=== PATIENT | female | born 1975 | race Two or more races ===

== ENCOUNTER 2024-12-21 17:04 | Emergency (ER) | payer MEDICAID, SELFPAY ==
[2024-12-21 17:22] VITALS: BP 149/91; PULSE 95; RESP 18; TEMP 36.9; O2SAT 98
--- NOTE | 2024-12-21 17:24 | XR_ITS ---
Examination: PA lateral chest 2 views TECHNIQUE: Upright PA and lateral chest 2 views Date and time: December 21, 2024 1835 hours Comparison June 20, 2023 INDICATIONS: Chest pain today. FINDINGS: Normal heart size. Lungs are clear. Osseous structures are intact. IMPRESSION: No active disease
--- NOTE | 2024-12-21 17:24 | EKG_ITS ---
[facility] Test Date: 2024-12-21 Pat Name: AINSLEY BARRAGAN Department: Room: - Gender: Female Brass [employer]ater: : 1975 Requested By: Dameon Gasca Order Number: [id number] Reading MD: Dameon Gasca Measurements Intervals [place] Rate: 97 P: 57 IA: 135 QRS: 13 QRSD: 99 T: 86 QT: 402 QTc: 513 Interpretive Statements SINUS RHYTHM NONSPECIFIC T-WAVE ABNORMALITY Compared to ECG 03/17/2023 16:57:54 Short IA interval no longer present Possible ischemia no longer present T-wave abnormality still present /store/S0/[id number]/ecg/[id number].pdf
--- NOTE | 2024-12-21 17:24 | PD.EDRME ---
Rapid Medical Screening Exam [facility] Arrival date/time: 12/21/24 17:04 49-year-old female with a history of methamphetamine abuse and congestive heart failure presents to the emergency room with a chief complaint of an insect bite to her left chin, and bilateral lower extremity swelling x 1 week. I have greeted and performed a focused initial assessment of this patient. A comprehensive ED assessment and evaluation of the patient, analysis of all test results, and completion of the medical decision making process will be conducted by additional ED providers. Chief Complaint: Animal Bite Vital signs: Vital Signs Temperature 98.4 F 12/21/24 17:22 Pulse Rate 95 12/21/24 17:22 Respiratory Rate 18 12/21/24 17:22 Blood Pressure 149/91 H 12/21/24 17:22 Pulse Oximetry (%) 98 12/21/24 17:22 Oxygen Delivery Method Room Air 12/21/24 17:22 Vital signs reviewed by provider: Yes
[2024-12-21 18:21] LABS: Basophils % (Auto) 0 % (0-2.5); Eosinophils # (Auto) 0.2 Thou/mm3 (0.0-0.5); Eosinophils % (Auto) 3 % (0-10); Hematocrit 30.9 % (36.0-46.0); Hemoglobin 9.7 g/dL (12.0-16.0); Immature Granulocytes % (Auto) 0 % (0-0); Immature Granulocytes Auto 0.01 Thou/mm3 (0.00-0.00); Lymphocytes # (Auto) 2.5 Thou/mm3 (1.0-4.8); Lymphocytes % (Auto) 36 % (10-50); Mean Corpuscular HGB Conc 31.4 g/dl (31.0-37.0); Mean Corpuscular Hemoglobin 24.1 pg (25.0-35.0); Mean Corpuscular Volume 77 fL (80-100); Monocytes # (Auto) 0.5 Thou/mm3 (0.0-0.8); Monocytes % (Auto) 7 % (0-12); Neutrophils # (Auto) 3.8 Thou/mm3 (1.8-7.7); Neutrophils % (Auto) 55 % (37-80); Nucleated Red Blood Cell % 0 /100 WBC (0); Platelet Count 416 Thou/mm3 (140-440); RDW Standard Deviation 44.7 fL (36.4-46.3); Red Blood Count 4.02 Miln/mm3 (4.00-5.20); White Blood Count 6.9 Thou/mm3 (3.6-11.0)
--- NOTE | 2024-12-21 18:21 | PD.EDSKIN ---
ED Skin Abcess FB-RME/HPI General Chief complaint: Animal Bite Stated complaint: BITE ON L) JAW X 2 DAYS, TEETH HURTING FROM BITE Time Seen by Provider: 12/21/24 18:14 Arrival date/time: 12/21/24 17:04 RME / HPI RME / HPI narrative: 12/21/24 17:04 49-year-old female with a history of methamphetamine abuse and congestive heart failure presents to the emergency room with a chief complaint of an insect bite to her left chin, and bilateral lower extremity swelling x 1 week. I have greeted and performed a focused initial assessment of this patient. A comprehensive ED assessment and evaluation of the patient, analysis of all test results, and completion of the medical decision making process will be conducted by additional ED providers. This section includes all my notes and documentations, including HPI, PE, and ED course. Eliecer Nunez MD HPI: 49 y/o female with Hx of CHF, Asthma, Anxiety, and Hypertension presents to ED c/o possible insect bite with infection in the chin. In addition, patient also reports BLL swelling x several years, no worsening recently. Denies dysuria. Reports allergies to Aspirin, Penicillin, and Codeine. No chest pain or shortness of breath.no fever. No other complaints. ROS: All negative except as documented in HPI. Physical Exam: General: Alert and oriented. No acute distress when remaining still. Eyes: Conjunctivae and lids clear. ENT: No nasal congestion. Neck: Supple. Heart: RRR. Lungs: No respiratory distress. Good air movement. No rhonchi, wheezing, rales. Abdomen: Soft and nontender. Skin: Pea-sized pimple-like lesion to the left side of chin, no fluctuancy. Neuro: Alert and oriented X 3. I reviewed all diagnostic test results. My interpretation of the EKG is sinus rhythm with no acute ST?T changes. My interpretation of the chest x-ray is NAD. Blood tests unremarkable, including WBC 6.9. At this point, diagnoses include cellulitis. Treatment here included Levofloxacin. Recommend outpatient treatment. Based on my best medical judgment, made decision no further evaluation or treatment indicated at this time. Patient understands and agrees to the discharge instructions customized and printed, see below. Discharge Instructions from Dr. Nunez printed for you: 1. Take Cipro to kill the germs causing the infection in your chin. 2. Avoid scratching in the future. Avoid scratching in the future to prevent damage of your skin and potentially severe infection. 3. See a private doctor on 12/22/2024 for recheck. Ask for help until you are completely better. 4. Seek immediate medical care with fever, spreading redness, or with any concerns. Eliecer Nunez MD Related Data Home Medications ?Medication ?Instructions ?Recorded ?Confirmed atorvastatin 40 mg tablet 40 mg PO QDAY 04/27/22 05/24/22 famotidine 20 mg tablet 20 mg PO BID 04/27/22 05/24/22 furosemide 20 mg tablet 20 mg PO BID 04/27/22 05/24/22 lisinopril 20 mg tablet 20 mg PO QDAY 04/27/22 05/24/22 potassium chloride 8 mEq 8 meq PO BID 04/27/22 05/24/22 capsule,extended release Previous Rx's ?Medication ?Instructions ?Recorded ciprofloxacin HCl 500 mg tablet 500 mg PO BID 3 days #6 tabs 12/21/24 (Cipro) Allergies Allergy/AdvReac Type Severity Reaction Status Date / Time aspirin Allergy Severe UNKNOWN Verified 12/21/24 17:08 codeine Allergy Severe HIVES Verified 12/21/24 17:08 Penicillins Allergy Severe UNKNOWN Verified 12/21/24 17:08 Review of Systems Review of Systems Systems Reviewed: All systems reviewed, normal except as documented Past Medical History Past Medical History CARDIAC: Positive Cardiac Disorders, Congestive Heart Failure and Hypertension RESPIRATORY: Positive Asthma PSYCHO/SOCIAL: Positive Anxiety Family History FAMILY HISTORY: Positive Family Cardiac Disorders Surgical History SURGICAL: Positive Abdominal Surgery Social History SMOKING STATUS: Current every day smoker ED Exam Narrative Physical exam: Refer to HPI above Course Course Course Narrative: CXR is ordered for determining the etiology of shortness of breath. Quality Measures none Orders Category Date Time Status EKG (ED ONLY) *Do not use* NOW Care 12/21/24 17:24 Completed EKG (ED Only) Stat Exams 12/21/24 17:24 Draft XR chest 2V Stat Exams 12/21/24 17:24 Completed B-Type Natriuretic Peptide Stat Lab 12/21/24 18:13 Completed CBC Stat Lab 12/21/24 18:13 Completed Comprehensive Metabolic Panel Stat Lab 12/21/24 18:13 Completed Magnesium Stat Lab 12/21/24 18:13 Completed Troponin I Stat Lab 12/21/24 18:13 Completed Levofloxacin [Levaquin] Med 12/21/24 19:01 Discontinued 500 mg PO X1 ONE Vital Signs Vital signs: Vital Signs Temperature 98.4 F 12/21/24 17:22 Pulse Rate 95 12/21/24 17:22 Respiratory Rate 18 12/21/24 17:22 Blood Pressure 149/91 H 12/21/24 17:22 Pulse Oximetry (%) 98 12/21/24 17:22 Oxygen Delivery Method Room Air 12/21/24 17:22 Skin / Abscess / Foreign Body MDM Narrative MDM Narrative:: Scribe Attestation: Asiya Pelayo, am scribing for and in the presence of Dr. Nunez. Provider Notation: Although this document has been carefully reviewed, there may still be some phonetic and other typographical errors. These errors are purely grammatical due to imperfections in the software program and should not be construed in any way to compromise the substance of the patient's medical care during this visit. 49 y/o female with Hx of CHF, Asthma, Anxiety, and Hypertension presents to ED c/o possible insect bite with associated fever x 2 days. In addition, patient also reports BLL swelling x several years. Patient data External records reviewed:: [facility] previous records (Prior ED records reviewed from 06/20/23. Patient was seen for Bacterial skin infection.) Clinical information provided by:: patient Social determinants that could affect healthcare access:: none Patient has the following chronic illnesses:: Congestive Heart Failure, Hypertension, Asthma, Anxiety How is presenting disease/condition affected by chronic disease/condition?: exacerbated by Evaluation data The following diagnostics were reviewed and interpreted by me:: lab results, radiology exam(s) and EKG tracing(s) Lab and/or radiology exams considered but not ordered:: None Interpretation Summary: I reviewed all diagnostic test results. My interpretation of the EKG is sinus rhythm with no acute ST?T changes. My interpretation of the chest x-ray is NAD. Blood tests unremarkable, including WBC 6.9. Medications / Prescriptions Medications or Prescriptions considered but not ordered:: None Medication administrations:: Medication Administration History Discontinued Medications Levofloxacin (Levofloxacin 250 Mg Tablet) 500 mg PO X1 ONE Stop: 12/21/24 19:02 Last Admin: 12/21/24 19:15 Dose: 500 mg Documented By: EF Levofloxacin Consultations Consultation(s) initiated? (list below): No Diagnosis Skin/Abscess Differential Diagnosis: abscess of skin or subcutaneous tissue, allergic reaction to drug, cellulitis, insect bites, impetigo and contact dermatitis Most likely diagnosis given after review of the tests above:: Cellulitis Admission Indicated Admission indicated?: not indicated Explain why admission is indicated or not indicated:: There was no indication for admission. Admission Request Was there a request for admission?: No Disposition Plan Disposition Plan: Discharge Discharge Attestation Discharge Attestation: The patient and all family members were given an opportunity to ask questions and understood the discharge instructions. Discharge instructions specifically effects, indications for sooner follow up or return to the emergency department, and the expected course of current diagnosis. Patient condition: Stable Discharge Plan Plan Patient Disposition: HOME (Self Care) Prescriptions/Referrals Prescriptions/Med Rec: New ciprofloxacin HCl [Cipro] 500 mg tablet 500 mg PO BID 3 Days Qty: 6 0RF No Action atorvastatin 40 mg tablet 40 mg PO QDAY Patient Comments: TAKE ONE TABLET BY MOUTH EVERY EVENING potassium chloride 8 mEq capsule, extended release 8 meq PO BID Patient Comments: TAKE ONE CAPSULE BY MOUTH TWICE DAILY with furosemide lisinopril 20 mg tablet 20 mg PO QDAY Patient Comments: TAKE ONE TABLET BY MOUTH EVERY DAY famotidine 20 mg tablet 20 mg PO BID Patient Comments: TAKE ONE TABLET BY MOUTH TWICE DAILY furosemide 20 mg tablet 20 mg PO BID Patient Comments: TAKE ONE TABLET BY MOUTH TWICE DAILY Referrals: No Primary/Family,Physician [Primary Care Provider] - In 1 week Problem List Clinical Impression: Cellulitis Patient/Caregiver Discharge Instructions Discharge Activity: activity as tolerated Education Materials: ED Cellulitis Additional Instructions: Discharge Instructions from Dr. Nunez printed for you: 1. Take Cipro to kill the germs causing the infection in your chin. 2. Avoid scratching in the future. Avoid scratching in the future to prevent damage of your skin and potentially severe infection. 3. See a private doctor on 12/22/2024 for recheck. Ask for help until you are completely better. 4. Seek immediate medical care with fever, spreading redness, or with any concerns. Print Language: Tunisian Stand Alone Forms: [employer] Info., Patient Portal Info Letter
--- NOTE | 2024-12-21 18:25 | PC.NURSE ---
in to assess pt, pt resting quietly at this time with c/o possible insect bite to chin causing pain that radiates down to the neck. pt also c/o bilat leg swelling/pain. pt without further complaints at this time. workup in progress. spouse at bedside. call light is within reach. plan of care ongoing.
[2024-12-21 18:42] LABS: Alanine Aminotransferase 9 U/L (10-49); Albumin, Serum 4.3 gm/dL (3.5-5.0); Albumin/Globulin Ratio 1.5 (1.2-2.2); Alkaline Phosphatase 104 U/L (46-116); Anion Gap 5 (7-16); Aspartate Amino Transferase 13 U/L (0-34); Bilirubin,Total 0.2 mg/dL (0.3-1.2); Calcium 8.7 mg/dL (8.3-10.6); Calcium (Corrected) 8.7 mg/dL (8.5-10.1); Carbon Dioxide 24.8 mMol/L (20.0-31.0); Chloride 106 mMol/L (98-107); Creatinine (Component) 0.7 mg/dL (0.6-1.3); Globulin 2.8 gm/dL (2.3-3.5); Glucose 95 mg/dL (74-106); Magnesium 1.7 mg/dL (1.6-2.6); Potassium 3.9 mMol/L (3.4-5.1); Sodium 136 mMol/L (136-145); Total Protein 7.1 gm/dL (5.7-8.2); eGFR > 60 See Note
[2024-12-21 18:43] VITALS: BP 134/88; PULSE 90; RESP 12; TEMP 36.9; O2SAT 98
[2024-12-21 19:12] LABS: B-Type Natriuretic Peptide 247 pg/mL (0-100); BUN/Creatinine Ratio 19 Ratio (12-20); Blood Urea Nitrogen 13 mg/dL (9-23); Osmolality,Calculated 272 (275-295); Troponin I < 0.020 ng/mL (0.0-0.045)
[2024-12-21] MEDS: LEVOFLOXACIN 250 MG TABLET 500 MG PO (19:15)
== END 2024-12-21 19:55 | disposition home or self-care (01) ==
PROVIDERS: Nurse Practitioner Family; Emergency Provider Emergency Medicine
DX: L03.211 Cellulitis of face (principal); I11.0 Hypertensive heart disease with heart failure; I50.9 Heart failure, unspecified; J45.909 Unspecified asthma, uncomplicated; F41.9 Anxiety disorder, unspecified
CPT/HCPCS: 36415; 71046; 80053; 80307; 81001; 83735; 83880; 84484; 85025; 93005; 99283; A9270

== ENCOUNTER 2025-02-20 21:31 | Emergency (ER) | payer MEDICAID, SELFPAY ==
[2025-02-20 21:33] VITALS: BMI 27.4
[2025-02-20 22:02] VITALS: BP 143/81; PULSE 103; RESP 18; TEMP 36.9; O2SAT 97
--- NOTE | 2025-02-20 22:10 | XR_ITS ---
Examination: PA lateral chest 2 views Technique portable upright AP lateral chest 2 views Date and time: February 20, 2025 10:23 PM INDICATIONS: Chest pain shortness of breath today. FINDINGS: Mild prominence left ventricle. No pneumonia or pulmonary edema. Intact osseous structures IMPRESSION: No pneumonia or pulmonary edema
--- NOTE | 2025-02-20 22:10 | EKG_ITS ---
[facility] Test Date: 2025-02-20 Pat Name: AINSLEY BARRAGAN Department: Room: - Gender: Female [employer]or: : 1975 Requested By: Rolly Bernabe Order Number: [id number] Reading MD: Rolly Bernabe Measurements Intervals [place] Rate: 91 P: 37 [place]: 122 QRS: -17 QRSD: 102 T: 127 QT: 402 QTc: 495 Interpretive Statements SINUS RHYTHM LEFT VENTRICULAR HYPERTROPHY AND ST-T CHANGE [VOLTAGE CRITERIA PLUS ST/T ABNORMALITY] Compared to ECG 12/21/2024 17:35:54 Left ventricular hypertrophy now present ST (T wave) deviation now present T-wave abnormality no longer present /store/S0/[id number]/ecg/[id number].pdf
--- NOTE | 2025-02-20 22:11 | EDRME_ITS ---
Rapid Medical Screening Exam [facility] Arrival date/time: 02/20/25 21:31 50F with history of drug-induced CHF presents to ED with 9 days of N/V and non- bloody diarrhea. There is also some SOB, but no CP. Patient also has had some spotting but denies . Patient states she's no on her period. Chief Complaint: Nausea/Vomiting/Diarrhea Vital signs: Vital Signs Temperature 98.5 F 02/20/25 22:02 Pulse Rate 103 H 02/20/25 22:02 Respiratory Rate 18 02/20/25 22:02 Blood Pressure 143/81 H 02/20/25 22:02 Pulse Oximetry (%) 97 02/20/25 22:02 Oxygen Delivery Method Room Air 02/20/25 22:02
[2025-02-20 22:29] LABS: Basophils # (Auto) 0.0 Thou/mm3 (0.0-0.2); Basophils % (Auto) 0 % (0-2.5); Eosinophils # (Auto) 0.1 Thou/mm3 (0.0-0.5); Eosinophils % (Auto) 2 % (0-10); Hematocrit 33.0 % (36.0-46.0); Hemoglobin 10.2 g/dL (12.0-16.0); Immature Granulocytes Auto 0.02 Thou/mm3 (0.00-0.00); Lymphocytes # (Auto) 1.8 Thou/mm3 (1.0-4.8); Lymphocytes % (Auto) 26 % (10-50); Mean Corpuscular HGB Conc 30.9 g/dl (31.0-37.0); Mean Corpuscular Hemoglobin 23.6 pg (25.0-35.0); Mean Corpuscular Volume 76 fL (80-100); Monocytes # (Auto) 0.4 Thou/mm3 (0.0-0.8); Monocytes % (Auto) 6 % (0-12); Neutrophils # (Auto) 4.5 Thou/mm3 (1.8-7.7); Neutrophils % (Auto) 66 % (37-80); Nucleated Red Blood Cell # 0.00 Thou/mm3 (0.00-0.00); Nucleated Red Blood Cell % 0 /100 WBC (0); Platelet Count 456 Thou/mm3 (140-440); RDW Standard Deviation 46.0 fL (36.4-46.3); Red Blood Count 4.33 Miln/mm3 (4.00-5.20); White Blood Count 6.9 Thou/mm3 (3.6-11.0)
[2025-02-20 22:40] VITALS: BP 134/74; PULSE 90; RESP 18; TEMP 36.6; O2SAT 97
[2025-02-20 22:46] LABS: Collection Type, Urine Clean Catch
[2025-02-20 22:48] LABS: Alanine Aminotransferase 10 U/L (10-49); Albumin, Serum 4.4 gm/dL (3.5-5.0); Albumin/Globulin Ratio 1.6 (1.2-2.2); Alkaline Phosphatase 111 U/L (46-116); Anion Gap 13 (7-16); Aspartate Amino Transferase 14 U/L (0-34); BUN/Creatinine Ratio 14 Ratio (12-20); Bilirubin,Total 0.2 mg/dL (0.3-1.2); Blood Urea Nitrogen 13 mg/dL (9-23); Calcium 9.3 mg/dL (8.3-10.6); Calcium (Corrected) 9.3 mg/dL (8.5-10.1); Carbon Dioxide 23.9 mMol/L (20.0-31.0); Chloride 106 mMol/L (98-107); Creatinine (Component) 0.9 mg/dL (0.6-1.3); Estimated Creatinine Clearance 69.1 mL/min (>60); Globulin 2.8 gm/dL (2.3-3.5); Glucose 104 mg/dL (74-106); Lipase 26 U/L (12-53); Osmolality,Calculated 285 (275-295); Potassium 3.7 mMol/L (3.4-5.1); Sodium 143 mMol/L (136-145); Total Protein 7.2 gm/dL (5.7-8.2); Troponin I < 0.020 ng/mL (0.0-0.045); eGFR > 60 See Note
[2025-02-20 22:51] LABS: B-Type Natriuretic Peptide 225 pg/mL (0-100)
[2025-02-20 23:01] LABS: Bacteria,Urine Rare; Bilirubin,Urine Negative (Negative); Blood,Urine Negative (Negative); Clarity,Urine Turbid (Clear/Hazy); Color,Urine Yellow (Lt Yel-Yel); Glucose, Urine Negative (Negative); Ketones,Urine Negative (Negative); Leukocyte Esterase,Urine Positive (Negative); Nitrite,Urine Positive (Negative); PH,Urine 5.5 (5.0-7.0); Protein,Urine 1+ (Neg - Trace); RBC,Urine 9 /hpf (0-3); Specific Gravity,Urine 1.035 (1.001-1.035); Squamous Epithelial Cell,Urine 22 /hpf (0-5); Urobilinogen,Urine Negative mg/dL (0.0-1.0); WBC,Urine 15 /hpf (0-5)
[2025-02-20 23:04] LABS: HCG Qualitative,Urine Negative
[2025-02-20 23:48] VITALS: BP 126/82; PULSE 91; RESP 19; TEMP 36.8; O2SAT 100
[2025-02-21 00:11] LABS: Barbiturate Screen,Urine Negative (Negative); Benzodiazepines Screen,Urine Negative (Negative); Benzoylecgonine Screen, Ur Negative (Negative); Fentanyl Screen,Urine Negative (Negative); Opiate Screen,Urine Negative (Negative); THC Screen,Urine Negative (Negative)
[2025-02-21 00:12] LABS: Amphetamine/Methamp Scrn,U Positive (Negative)
--- NOTE | 2025-02-21 00:20 | PD.EDNV ---
Nausea/Vomit./Diarrhea-RME/HPI General Chief complaint: Nausea/Vomiting/Diarrhea Stated complaint: DIARRHEA X 9DAYS, SPOTTING Arrival date/time: 02/20/25 21:31 RME / HPI RME / HPI Narrative: 02/20/25 21:31 50F with history of drug-induced CHF presents to ED with 9 days of N/V and non-bloody diarrhea. There is also some SOB, but no CP. Patient also has had some spotting but denies . Patient states she's no on her period. Dr. Collins?s Main ED Evaluation: 50yo female with a history of seizures, CHF, HTN presents to the ED for complaints of N/V/D for the last 8-9 days. No hematemesis, hematochezia or melena. Patient states she has been unable to keep any food or fluids down. She reports associated generalized weakness, dizziness, and fever. She also notes having vaginal spotting that started yesterday. No chills, sweating, chest pain, abdominal pain, UTI symptoms or any other associated symptoms. She is not passing gas. She is not on any mediations. PSH includes cholecystectomy. Related Data Home Medications ?Medication ?Instructions ?Recorded ?Confirmed atorvastatin 40 mg tablet 40 mg PO QDAY 04/27/22 05/24/22 famotidine 20 mg tablet 20 mg PO BID 04/27/22 05/24/22 furosemide 20 mg tablet 20 mg PO BID 04/27/22 05/24/22 lisinopril 20 mg tablet 20 mg PO QDAY 04/27/22 05/24/22 potassium chloride 8 mEq 8 meq PO BID 04/27/22 05/24/22 capsule,extended release Previous Rx's ?Medication ?Instructions ?Recorded ciprofloxacin HCl 500 mg tablet 500 mg PO BID #20 tabs 02/21/25 (Cipro) metronidazole 500 mg tablet 500 mg PO TID #21 tabs 02/21/25 Allergies Allergy/AdvReac Type Severity Reaction Status Date / Time aspirin Allergy Severe UNKNOWN Verified 02/20/25 21:32 codeine Allergy Severe HIVES Verified 02/20/25 21:32 Penicillins Allergy Severe UNKNOWN Verified 02/20/25 21:32 Review of Systems Review of Systems Systems Reviewed: All systems reviewed, normal except as documented Past Medical History Past Medical History NEUROLOGIC: Positive Neurological Disorders and Seizures CARDIAC: Positive Cardiac Disorders, Congestive Heart Failure and Hypertension RESPIRATORY: Positive Respiratory Disorders and Asthma; Negative Chronic Obstructive Pulmonary Disease (COPD) GASTROINTESTINAL: Positive Gastrointestinal Disorders and Gall Bladder Disease; Negative Hepatitis GENITOURINARY: Negative Genitourinary Disorders or Renal Disease REPRODUCTIVE: Positive Previous Pregnancies; Negative Pelvic Inflammatory Disease MUSCULOSKELETAL: Negative Musculoskeletal Disorders ENT: Negative History of ENT Problems ENDOCRINE: Negative Endocrine Disorders, Diabetes Mellitus Type 1 or Diabetes Mellitus Type 2 HEMATOLOGIC: Negative Blood Disorders or Sickle Cell Disease PSYCHO/SOCIAL: Positive Recreational Drug Use, Depression and Anxiety OTHER HISTORY: Negative Autoimmune Disease, Falls, Human Immunodeficiency Virus (HIV), Chicken Pox, Measles, Mumps, Rubella ([place] Measles), Pertussis or Clostridium Difficile Family History FAMILY HISTORY: Positive Family Cardiac Disorders Surgical History SURGICAL: Positive Abdominal Surgery Social History SMOKING STATUS: Current every day smoker SECOND HAND EXPOSURE: No ED Exam Narrative Physical exam: GENERAL APPEARANCE: alert and oriented x 4, well-developed, well-nourished, no acute distress VITALS: All vitals were reviewed and the pulse ox is 100% on room air, which is normal according to my interpretation. HEENT: Normocephalic, atraumatic; pupils equal, round, reactive to light; EOMI; mucous membranes pink, moist; oropharynx clear NECK: Supple LUNGS: CTABL; no wheezes, no rales, no rhonchi HEART: Regular rate, regular rhythm; normal S1, S2; no murmurs ABDOMEN: moderately distended; some high-pitched BS; soft, no tenderness, no guarding, no rebound; no masses, no organomegaly, no hernia BACK: no CVA tenderness EXTREMITIES: atraumatic; no edema NEUROLOGIC: awake; alert and oriented x4; cranial nerves II-XII grossly intact; no focal sensory or motor deficits PSYCHIATRIC: appropriate mood and affect SKIN: warm, dry, normal color; no rashes Course Quality Measures none Orders Category Date Time Status CT Screening NOW Care 02/21/25 01:22 Active EKG (ED ONLY) *Do not use* NOW Care 02/20/25 22:[address] abdomen pelvis w con Stat Exams 02/21/25 01:22 Taken EKG (ED Only) Stat Exams 02/20/25 22:10 Draft XR chest 2V Stat Exams 02/20/25 22:10 Completed B-Type Natriuretic Peptide Stat Lab 02/20/25 22:20 Completed CBC Stat Lab 02/20/25 22:20 Completed Comprehensive Metabolic Panel Stat Lab 02/20/25 22:20 Completed Drug Screen,Urine Stat Lab 02/20/25 22:41 Completed HCG Qualitative,Urine Stat Lab 02/20/25 22:41 Completed Lipase Stat Lab 02/20/25 22:20 Completed Troponin I Stat Lab 02/20/25 22:20 Completed Urinalysis Stat Lab 02/20/25 22:41 Completed CIPROFLOXACIN/D5w 400 MG IVPB [Cipro Ivpb] Med 02/21/25 03:14 Active 400 mg in 200 ml IV X1 Sodium Chloride 0.9% 1000 ml [Ns] 1,000 ml Med 02/21/25 03:14 Active IV 999 mls/hr metroNIDAZOLE/NS 500 MG IVPB [Flagyl 500 mg IV] Med 02/21/25 03:14 Discontinued 500 mg in 100 ml IV X1 Vital Signs Vital signs: Vital Signs Temperature 98.5 F 02/20/25 22:02 Pulse Rate 103 H 02/20/25 22:02 Respiratory Rate 18 02/20/25 22:02 Blood Pressure 143/81 H 02/20/25 22:02 Pulse Oximetry (%) 97 02/20/25 22:02 Oxygen Delivery Method Room Air 02/20/25 22:02 Nausea/Vomiting/Diarrhea MDM Narrative MDM Narrative:: Scribe Attestation: 02/20/25 - Meghna Pelayo am scribing for and in the presence of Dr. Collins. Patient data External records reviewed:: [facility] previous records (Per chart review, patient was seen here on 12/21/24 for cellulitis.) Clinical information provided by:: patient Social determinants that could affect healthcare access:: none Patient has the following chronic illnesses:: seizures, CHF, HTN How is presenting disease/condition affected by chronic disease/condition?: uneffected by Evaluation data The following diagnostics were reviewed and interpreted by me:: lab results, radiology exam(s) and EKG tracing(s) Lab and/or radiology exams considered but not ordered:: none Interpretation Summary: CBC normal, CMP normal, Troponin normal, BNP 225; UA shows 1+ protein, positive nitrites, positive leukocyte esterase, 9 RBCs, 15 WBCs, and rare bacteria; HCG negative; UDS positive for methamphetamines. EKG done at 2213, NSR, rate of 91, T wave inversion in lead I and avL, LVH, no STEMI, according to my interpretation. [facility] Report Signed Patient: AINSLEY BARRAGAN Record#: [id number] Birthdate: 1975 Age/Sex: 50 / F Location: [facility] Attending Dr: Ordering Physician: Rolly Bernabe PA-C Date of Service: 02/20/25 Procedure(s): XR chest 2V Accession Number(s): [id number] cc: Mateo Go MD; Rolly Bernabe PA-C~ Examination: PA lateral chest 2 views Technique portable upright AP lateral chest 2 views Date and time: February 20, 2025 10:23 PM INDICATIONS: Chest pain shortness of breath today. FINDINGS: Mild prominence left ventricle. No pneumonia or pulmonary edema. Intact osseous structures IMPRESSION: No pneumonia or pulmonary edema Dictated By: Mateo Go MD Signed By: <Electronically signed by Mateo Go MD in OV> 02/20/257 [facility] Preliminary Report Draft Patient: AINSLEY BARRAGAN. Record#: [id number] Birthdate: 1975 Age/Sex: 50 / F Location: [facility] Attending Dr: Ordering Physician: Date of Service: Procedure(s): Accession Number(s): cc: ~ CT scan of the abdomen and pelvis with intravenous contrast (axial sections with sagittal and coronal reformats) February 21, 2025 0204 hours Clinical History: abdominal distension, diarrhea Compared with the prior study dated May 24, 2022 Findings: Bibasilar atelectasis is seen. A small hiatal hernia is present. There is thickening of the wall of the distal esophagus. The gallbladder is surgically absent.The liver, pancreas, spleen, kidneys and adrenals are unremarkable. No evidence of bowel obstruction. Fluid-filled small and large bowel loops with air-fluid levels in the colon. The appendix is within normal limits (coronal images 74-81/194). There are multiple prominent mesenteric lymph nodes, the largest measuring 1.5 cm. The urinary bladder is incompletely distended at the time of the examination and appears mildly thick walled. There is no free fluid or free air. Post operative changes in the pelvis are present. There is a left ovarian follicle, measuring 2.5 cm. The uterus and adnexa are unremarkable. A small fat-containing umbilical hernia is present. Mild degenerative changes are identified in the spine. There is anterolisthesis of L4 on L5 Impression: No evidence of bowel obstruction, free air or abscess. Findings suggestive of esophagitis. Fluid-filled small and large bowel loops with air-fluid levels in the colon, which may be nonspecific or related to diarrhea. However, the possibility of mild enterocolitis cannot be excluded. Recommend clinical correlation. Other findings as described above. Report Electronically Signed By: Chun Muniz 02/21/2025 3:09:27 AM [EST] Medications / Prescriptions Medications / Prescriptions considered but not ordered:: none Medication administrations:: Medication Administration History Sodium Chloride (Ns) 1,000 mls @ 999 mls/hr IV .Q1H1M ONE Stop: 02/21/25 04:14 Last Admin: 02/21/25 03:59 Dose: 999 mls/hr Documented By: LEIGHTON Ciprofloxacin/Dextrose (Cipro Ivpb) 400 mg in 200 mls @ 200 mls/hr IV X1 ONE Stop: 02/21/25 04:13 Discontinued Medications Metronidazole (Flagyl 500 Mg Iv) 500 mg in 100 mls @ 200 mls/hr IV X1 ONE Stop: 02/21/25 03:43 Last Admin: 02/21/25 04:00 Dose: 200 mls/hr Documented By: LEIGHTON see above Consultations Consultation(s) initiated? (list below): No Diagnosis Nausea Differential Diagnosis: other (colitis, diverticulitis, enteritis) Most likely diagnosis given after review of the tests above:: see clinical impression below Admission Indicated Admission indicated?: not indicated Admission Request Was there a request for admission?: No Disposition Plan Disposition Plan: Discharge Discharge Attestation Discharge Attestation: The patient and all family members were given an opportunity to ask questions and understood the discharge instructions. Discharge instructions specifically effects, indications for sooner follow up or return to the emergency department, and the expected course of current diagnosis. Patient condition: Stable Discharge Plan Plan Patient Disposition: HOME (Self Care) Prescriptions/Referrals Prescriptions/Med Rec: New ciprofloxacin HCl [Cipro] 500 mg tablet 500 mg PO BID Qty: 20 0RF metronidazole 500 mg tablet 500 mg PO TID Qty: 21 0RF No Action atorvastatin 40 mg tablet 40 mg PO QDAY Patient Comments: TAKE ONE TABLET BY MOUTH EVERY EVENING potassium chloride 8 mEq capsule, extended release 8 meq PO BID Patient Comments: TAKE ONE CAPSULE BY MOUTH TWICE DAILY with furosemide lisinopril 20 mg tablet 20 mg PO QDAY Patient Comments: TAKE ONE TABLET BY MOUTH EVERY DAY famotidine 20 mg tablet 20 mg PO BID Patient Comments: TAKE ONE TABLET BY MOUTH TWICE DAILY furosemide 20 mg tablet 20 mg PO BID Patient Comments: TAKE ONE TABLET BY MOUTH TWICE DAILY Referrals: No Primary/Family,Physician [Primary Care Provider] - In 1 week Problem List Clinical Impression: Diarrhea, Enterocolitis Patient/Caregiver Discharge Instructions Education Materials: Treating Diarrhea, Understanding Colitis Print Language: Pashto Stand Alone Forms: [facility] Award Info., Patient Portal Info Letter
--- NOTE | 2025-02-21 01:22 | XR_ITS ---
Examination: CT abdomen with intravenous contrast CT pelvis with intravenous contrast 2-D coronal reconstructions 2-D sagittal reconstructions Date and time of exam:February 21, 2025 0204 hours Comparison May 24, 2022 INDICATIONS: Abdominal distention and diarrhea today. CTDI: vol (mGy) 9.28 DLP: (mGycm) 531 Technique: Multiple axial sections of the abdomen and pelvis have been obtained. 64 slice high-resolution scanner used. 3 mm axial sections have been obtained, post intravenous injection of 60 cc of Isovue 370 2-D sagittal, coronal reconstructions obtained. Low dose protocols were performed. One or more of the following dose reduction techniques were used; automated exposure control, adjustment of the mA and/or KV according to patient size, use of iterative reconstruction technique. Findings: Retrocardiac gastric hernia Mild thickening of the lateral wall of the esophagus No focal liver or splenic lesions Absent gallbladder No pancreatic or adrenal mass No renal or ureteral calculi, no hydronephrosis Normal appendix No bowel obstruction Colonic diverticulosis, no diverticulitis Multiple lymph nodes in the mesentery including around the ascending colon Focal narrowing in the rectosigmoid colon, axial image 163 Anteverted uterus 29 mm left ovarian cyst Grade 1 anterolisthesis L4 on L5 IMPRESSION: Suspicious for reflux esophagitis Multiple lymph nodes in the mesentery including around the ascending colon, the appendix, however it is normal Focal narrowing in the rectosigmoid colon, recommend elective colonoscopy follow-up to exclude early malignant neoplasm of the rectosigmoid, axial image 163
--- NOTE | 2025-02-21 03:09 | PRELIM_ITS ---
CT scan of the abdomen and pelvis with intravenous contrast (axial sections with sagittal and coronal reformats) February 21, 2025 0204 hours Clinical History: abdominal distension, diarrhea Compared with the prior study dated May 24, 2022 Findings: Bibasilar atelectasis is seen. A small hiatal hernia is present. There is thickening of the wall of the distal esophagus. The gallbladder is surgically absent.The liver, pancreas, spleen, kidneys and adrenals are unremarkable. No evidence of bowel obstruction. Fluid-filled small and large bowel loops with air-fluid levels in the colon. The appendix is within normal limits (coronal images 74-81/194). There are multiple prominent mesenteric lymph nodes, the largest measuring 1.5 cm. The urinary bladder is incompletely distended at the time of the examination and appears mildly thick walled. There is no free fluid or free air. Post operative changes in the pelvis are present. There is a left ovarian follicle, measuring 2.5 cm. The uterus and adnexa are unremarkable. A small fat-containing umbilical hernia is present. Mild degenerative changes are identified in the spine. There is anterolisthesis of L4 on L5 Impression: No evidence of bowel obstruction, free air or abscess. Findings suggestive of esophagitis. Fluid-filled small and large bowel loops with air-fluid levels in the colon, which may be nonspecific or related to diarrhea. However, the possibility of mild enterocolitis cannot be excluded. Recommend clinical correlation. Other findings as described above. Report Electronically Signed By: Chun Muniz 02/21/2025 3:09:27 AM [EST]
[2025-02-21 03:53] VITALS: BP 121/81; PULSE 77; RESP 16; TEMP 36.7; O2SAT 98
[2025-02-21] MEDS: SODIUM CHLORIDE 0.9% 1000 ML 1,000 ML 999 ML IV (03:59)
[2025-02-21] MEDS: metroNIDAZOLE/NS 500 MG IVPB 500 MG/100 ML BAG 200 MG IV (04:00)
[2025-02-21] MEDS: CIPROFLOXACIN/D5w 400 MG IVPB 400 MG/200 ML BAG 200 MG IV (05:18)
[2025-02-21 06:37] VITALS: BP 119/77; PULSE 80; RESP 18; TEMP 36.7; O2SAT 98
[2025-02-21 06:48] VITALS: BP 119/77; PULSE 80; RESP 18; TEMP 36.7; O2SAT 98
== END 2025-02-21 06:48 | disposition home or self-care (01) ==
PROVIDERS: Physician Assistant; Emergency Provider Emergency Medicine
DX: K52.9 Noninfective gastroenteritis and colitis, unspecified (principal); R94.31 Abnormal electrocardiogram [ECG] [EKG]; R07.9 Chest pain, unspecified; R06.02 Shortness of breath; I50.9 Heart failure, unspecified; I10 Essential (primary) hypertension; F17.210 Nicotine dependence, cigarettes, uncomplicated
CPT/HCPCS: 36415; 71046; 74177; 80053; 80307; 81001; 81025; 83690; 83880; 84484; 85025; 93005; 96361; 96365; 99283; A4649; J0744; J3490; J7030; Q9967; J1836

== ENCOUNTER 2025-04-09 15:49 | Emergency (ER) | payer MEDICAID, SELFPAY ==
[2025-04-09 16:06] VITALS: BP 152/90; PULSE 105; RESP 18; TEMP 37.2; O2SAT 98; BMI 29.2
--- NOTE | 2025-04-09 16:16 | PD.EDSKIN ---
ED Skin Abcess FB-RME/HPI General Chief complaint: Skin/Abscess/Foreign Body Stated complaint: Sores/abscess to face X 1 week Time Seen by Provider: 04/09/25 16:00 Arrival date/time: 04/09/25 15:49 50-year-old female with history of methamphetamine abuse as well as homelessness presents with concerns for sores to her face Limitations: no limitations Related Data Home Medications ?Medication ?Instructions ?Recorded ?Confirmed atorvastatin 40 mg tablet 40 mg PO QDAY 04/27/22 05/24/22 famotidine 20 mg tablet 20 mg PO BID 04/27/22 05/24/22 furosemide 20 mg tablet 20 mg PO BID 04/27/22 05/24/22 lisinopril 20 mg tablet 20 mg PO QDAY 04/27/22 05/24/22 potassium chloride 8 mEq 8 meq PO BID 04/27/22 05/24/22 capsule,extended release Previous Rx's ?Medication ?Instructions ?Recorded ciprofloxacin HCl 500 mg tablet 500 mg PO BID #20 tabs 02/21/25 (Cipro) metronidazole 500 mg tablet 500 mg PO TID #21 tabs 02/21/25 clindamycin HCl 300 mg capsule 300 mg PO TID 7 days #21 caps 04/09/25 ibuprofen 600 mg tablet 600 mg PO Q6H #30 tabs 04/09/25 mupirocin 2 % topical ointment 1 applic topical TID 10 days #22 04/09/25 grams Allergies Allergy/AdvReac Type Severity Reaction Status Date / Time aspirin Allergy Severe UNKNOWN Verified 04/09/25 15:53 codeine Allergy Severe HIVES Verified 04/09/25 15:53 Penicillins Allergy Severe UNKNOWN Verified 04/09/25 15:53 Review of Systems Review of Systems Systems Reviewed: All systems reviewed, normal except as documented Constitutional Constitutional: Reports system reviewed and no additional complaints, except as documented, Denies fever(s) and Denies headache(s) Eyes Eyes: Reports system reviewed and no additional complaints, except as documented and Denies blurry vision ENT Ears, Nose, Mouth, and Throat: Reports system reviewed and no additional complaints, except as documented, Denies headache(s), Denies nasal congestion and Denies nasal discharge Cardiovascular Cardiovascular: Reports system reviewed and no additional complaints, except as documented, Denies chest pain and Denies dyspnea Respiratory Respiratory: Reports system reviewed and no additional complaints, except as documented, Denies chest congestion, Denies cough and Denies dyspnea Gastrointestinal Gastrointestinal: Reports system reviewed and no additional complaints, except as documented and Denies abdominal pain Integumentary/Breasts Skin/Breast: Reports system reviewed and no additional complaints, except as documented, Denies rash and Reports other (Skin sores facial) Neurologic Neurologic: Reports system reviewed and no additional complaints, except as documented, Reports as per HPI and Denies headache(s) Past Medical History Past Medical History NEUROLOGIC: Positive Neurological Disorders and Seizures CARDIAC: Positive Cardiac Disorders, Congestive Heart Failure and Hypertension RESPIRATORY: Positive Asthma; Negative Chronic Obstructive Pulmonary Disease (COPD) GASTROINTESTINAL: Positive Gastrointestinal Disorders and Gall Bladder Disease; Negative Hepatitis GENITOURINARY: Negative Genitourinary Disorders or Renal Disease REPRODUCTIVE: Positive Previous Pregnancies; Negative Pelvic Inflammatory Disease MUSCULOSKELETAL: Negative Musculoskeletal Disorders ENDOCRINE: Negative Endocrine Disorders, Diabetes Mellitus Type 1 or Diabetes Mellitus Type 2 HEMATOLOGIC: Negative Blood Disorders or Sickle Cell Disease PSYCHO/SOCIAL: Positive Recreational Drug Use, Depression and Anxiety OTHER HISTORY: Negative Autoimmune Disease, Falls, Human Immunodeficiency Virus (HIV), Chicken Pox, Measles, Mumps, Rubella ([place] Measles), Pertussis or Clostridium Difficile Family History FAMILY HISTORY: Positive Family Cardiac Disorders Surgical History SURGICAL: Positive Abdominal Surgery Social History SMOKING STATUS: Current every day smoker SECOND HAND EXPOSURE: No ED Exam General Limitations: Present no limitations General appearance: Present alert and in no apparent distress Head Head exam: Present atraumatic Eye Eye exam: Present normal appearance, PERRL and EOMI ENT ENT exam: Present normal exam, normal oropharynx and mucous membranes moist Neck Neck exam: Present normal inspection, full ROM and trachea midline Chest Chest inspection: Present normal inspection and symmetric chest wall rise Respiratory Respiratory exam: Present normal lung sounds bilaterally Cardiovascular Cardiovascular exam: Present regular rate, normal rhythm and normal heart sounds Abdominal Exam Abdominal exam: Present soft and normal bowel sounds Extremities Exam Extremities exam: Present normal inspection and full ROM Back Exam Back exam: Present normal inspection and full ROM Neurological Exam Neurological exam: Present alert, oriented X3 and CN II-XII intact Psychiatric Psychiatric exam: Present normal affect and normal mood Skin Skin exam: Present warm, dry, intact and normal color Course Quality Measures none Orders Category Date Time Status Clindamycin Vial [Cleocin vial] Med 04/09/25 16:14 Discontinued 600 mg IM X1 ONE Vital Signs Vital signs: Vital Signs Temperature 98.9 F 04/09/25 16:06 Pulse Rate 105 H 04/09/25 16:06 Respiratory Rate 18 04/09/25 16:06 Blood Pressure 152/90 H 04/09/25 16:06 Pulse Oximetry (%) 98 04/09/25 16:06 Oxygen Delivery Method Room Air 04/09/25 16:06 O2 saturation 98% room air within normal limits Skin / Abscess / Foreign Body MDM Narrative MDM Narrative:: 50-year-old female with history of methamphetamine abuse as well as homelessness presents with concerns for sores to her face On exam patient well-appearing patient does not appear toxic no acute distress On exam patient has sores to her face no large abscesses no surrounding cellulitis Patient given clindamycin here and discharged home clindamycin Patient discharged home in no distress to follow-up with primary care doctor in the next 24 to 48 hours and for any worsening symptoms to return to the ER immediately Patient data External records reviewed:: [facility] previous records Clinical information provided by:: patient Social determinants that could affect healthcare access:: none Patient has the following chronic illnesses:: See history How is presenting disease/condition affected by chronic disease/condition?: exacerbated by Evaluation data The following diagnostics were reviewed and interpreted by me:: other (specify) Lab and/or radiology exams considered but not ordered:: Considered not indicated Interpretation Summary: N/A Medications / Prescriptions Medications or Prescriptions considered but not ordered:: Given Medication administrations:: Medication Administration History Discontinued Medications Clindamycin Phosphate (Clindamycin Phos Inj 150 Mg/Ml Vial 6 Ml) 600 mg IM X1 ONE Stop: 04/09/25 16:15 Last Admin: 04/09/25 16:29 Dose: 600 mg Documented By: Given Consultations Consultation(s) initiated? (list below): No Diagnosis Skin/Abscess Differential Diagnosis: abscess of skin or subcutaneous tissue, urticaria and cellulitis Most likely diagnosis given after review of the tests above:: No criteria Admission Indicated Admission indicated?: not indicated Admission Request Was there a request for admission?: No Disposition Plan Disposition Plan: Discharge Discharge Attestation Discharge Attestation: The patient and all family members were given an opportunity to ask questions and understood the discharge instructions. Discharge instructions specifically effects, indications for sooner follow up or return to the emergency department, and the expected course of current diagnosis. Patient condition: Stable Discharge Plan Plan Patient Disposition: HOME (Self Care) Prescriptions/Referrals Prescriptions/Med Rec: New clindamycin HCl 300 mg capsule 300 mg PO TID 7 Days Qty: 21 0RF mupirocin 2 % ointment 1 applic topical TID 10 Days Qty: 22 0RF ibuprofen 600 mg tablet 600 mg PO Q6H Qty: 30 0RF No Action atorvastatin 40 mg tablet 40 mg PO QDAY Patient Comments: TAKE ONE TABLET BY MOUTH EVERY EVENING potassium chloride 8 mEq capsule, extended release 8 meq PO BID Patient Comments: TAKE ONE CAPSULE BY MOUTH TWICE DAILY with furosemide lisinopril 20 mg tablet 20 mg PO QDAY Patient Comments: TAKE ONE TABLET BY MOUTH EVERY DAY famotidine 20 mg tablet 20 mg PO BID Patient Comments: TAKE ONE TABLET BY MOUTH TWICE DAILY furosemide 20 mg tablet 20 mg PO BID Patient Comments: TAKE ONE TABLET BY MOUTH TWICE DAILY ciprofloxacin HCl [Cipro] 500 mg tablet 500 mg PO BID Qty: 20 0RF metronidazole 500 mg tablet 500 mg PO TID Qty: 21 0RF Problem List Clinical Impression: Skin sore, Methamphetamine abuse Patient/Caregiver Discharge Instructions Education Materials: ED Drug Abuse Additional Instructions: Please follow up with your primary care doctor in the next 24-48hrs for any worsening symptoms return here immediately Print Language: Vietnamese Stand Alone Forms: [facility] Award Info., Patient Portal Info Letter PA/[employer] Supervising Physician PA/[employer] Supervising Physician: Dr. self
[2025-04-09] MEDS: CLINDAMYCIN PHOS INJ 150 MG/ML VIAL 6 ML 600 MG IM (16:29)
== END 2025-04-09 16:45 | disposition home or self-care (01) ==
PROVIDERS: Emergency Provider Family Medicine
DX: L98.499 Non-pressure chronic ulcer of skin of other sites with unspecified severity (principal); F15.10 Other stimulant abuse, uncomplicated; Z59.00 Homelessness unspecified
CPT/HCPCS: 96372; 99282; J0736

== ENCOUNTER 2025-05-11 09:57 | Emergency (ER) | payer MEDICAID, SELFPAY ==
--- NOTE | 2025-05-11 10:02 | EKG_ITS ---
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
[2025-05-11 10:13] VITALS: BP 114/66; PULSE 104; RESP 18; TEMP 37.4; O2SAT 99
--- NOTE | 2025-05-11 10:15 | XR_ITS ---
Examination: PA lateral chest 2 views TECHNIQUE: Upright PA lateral chest 2 views Date and time: May 11, 2025, 1020 hours INDICATIONS: Shortness of breath today. FINDINGS: Mild prominence left ventricle. No pneumonia or pulmonary edema. The osseous structures are intact IMPRESSION: No pneumonia or pulmonary edema
--- NOTE | 2025-05-11 10:16 | PD.EDRME ---
Rapid Medical Screening Exam E Arrival date/time: 05/11/25 09:57 50-year-old female with a history of hyperlipidemia, CHF, hypertension, presents to the emergency room with a chief complaint of left-sided sternal 10 out of 10 chest pain that radiates up her left neck. The patient is also having shortness of breath. I have greeted and performed a focused initial assessment of this patient. A comprehensive ED assessment and evaluation of the patient, analysis of all test results, and completion of the medical decision making process will be conducted by additional ED providers. Chief Complaint: Chest Pain Vital signs: Vital Signs Temperature 99.3 F 05/11/25 10:13 Pulse Rate 104 H 05/11/25 10:13 Respiratory Rate 18 05/11/25 10:13 Blood Pressure 114/66 05/11/25 10:13 Pulse Oximetry (%) 99 05/11/25 10:13 Oxygen Delivery Method Room Air 05/11/25 10:13 Vital signs reviewed by provider: Yes
[2025-05-11] MEDS: ACETAMINOPHEN 325 MG TABLET 650 MG PO (10:44)
[2025-05-11 10:50] LABS: Basophils # (Auto) 0.0 Thou/mm3 (0.0-0.2); Basophils % (Auto) 0 % (0-2.5); Eosinophils # (Auto) 0.1 Thou/mm3 (0.0-0.5); Eosinophils % (Auto) 1 % (0-10); Hematocrit 33.2 % (36.0-46.0); Hemoglobin 10.1 g/dL (12.0-16.0); Immature Granulocytes Auto 0.01 Thou/mm3 (0.00-0.00); Lymphocytes # (Auto) 0.4 Thou/mm3 (1.0-4.8); Lymphocytes % (Auto) 10 % (10-50); Mean Corpuscular HGB Conc 30.4 g/dl (31.0-37.0); Mean Corpuscular Hemoglobin 23.4 pg (25.0-35.0); Mean Corpuscular Volume 77 fL (80-100); Monocytes # (Auto) 0.6 Thou/mm3 (0.0-0.8); Monocytes % (Auto) 14 % (0-12); Neutrophils # (Auto) 3.2 Thou/mm3 (1.8-7.7); Neutrophils % (Auto) 75 % (37-80); Nucleated Red Blood Cell # 0.00 Thou/mm3 (0.00-0.00); Nucleated Red Blood Cell % 0 /100 WBC (0); Platelet Count 361 Thou/mm3 (140-440); RDW Standard Deviation 46.4 fL (36.4-46.3); Red Blood Count 4.31 Miln/mm3 (4.00-5.20); White Blood Count 4.3 Thou/mm3 (3.6-11.0)
[2025-05-11 11:06] LABS: INR 1.0 (0.9-1.3); Partial Thromboplastin Time 25.3 Seconds (22.0-36.0); Prothrombin Time 10.8 Seconds (9.0-12.2)
[2025-05-11 11:17] LABS: B-Type Natriuretic Peptide 227 pg/mL (0-100)
[2025-05-11 11:19] LABS: Alanine Aminotransferase 8 U/L (10-49); Albumin, Serum 4.3 gm/dL (3.5-5.0); Albumin/Globulin Ratio 1.7 (1.2-2.2); Alkaline Phosphatase 92 U/L (46-116); Anion Gap 9 (7-16); Aspartate Amino Transferase 14 U/L (0-34); BUN/Creatinine Ratio 10 Ratio (12-20); Bilirubin,Total 0.3 mg/dL (0.3-1.2); Blood Urea Nitrogen 8 mg/dL (9-23); Calcium 9.2 mg/dL (8.3-10.6); Calcium (Corrected) 9.2 mg/dL (8.5-10.1); Carbon Dioxide 24.4 mMol/L (20.0-31.0); Chloride 103 mMol/L (98-107); Creatinine (Component) 0.8 mg/dL (0.6-1.3); Globulin 2.6 gm/dL (2.3-3.5); Glucose 98 mg/dL (74-106); LDH (Lactate Dehydrogenase) 166 U/L (120-246); Magnesium 1.6 mg/dL (1.6-2.6); Osmolality,Calculated 270 (275-295); Potassium 3.9 mMol/L (3.4-5.1); Sodium 136 mMol/L (136-145); Total Protein 6.9 gm/dL (5.7-8.2); Troponin I < 0.020 ng/mL (0.0-0.045); eGFR > 60 See Note
[2025-05-11 12:18] LABS: Collection Type, Urine Clean Catch
[2025-05-11 12:49] LABS: Amphetamine/Methamp Scrn,U Positive (Negative); Barbiturate Screen,Urine Negative (Negative); Benzodiazepines Screen,Urine Negative (Negative); Benzoylecgonine Screen, Ur Negative (Negative); Fentanyl Screen,Urine Negative (Negative); Opiate Screen,Urine Negative (Negative); THC Screen,Urine Negative (Negative)
[2025-05-11 12:57] LABS: Bacteria,Urine 1+; Bilirubin,Urine Negative (Negative); Blood,Urine Negative (Negative); Clarity,Urine Turbid (Clear/Hazy); Color,Urine Yellow (Lt Yel-Yel); Culture Indicated,Urine Contaminated; Glucose, Urine Negative (Negative); Ketones,Urine Negative (Negative); Leukocyte Esterase,Urine Positive (Negative); Nitrite,Urine Positive (Negative); PH,Urine 7.5 (5.0-7.0); Protein,Urine Trace (Neg - Trace); RBC,Urine 3 /hpf (0-3); Specific Gravity,Urine 1.020 (1.001-1.035); Squamous Epithelial Cell,Urine 27 /hpf (0-5); Urobilinogen,Urine Negative mg/dL (0.0-1.0); WBC,Urine 34 /hpf (0-5)
--- NOTE | 2025-05-11 13:43 | EDNOTE_ITS ---
ED General RME/HPI General Chief complaint: Chest Pain Stated complaint: CHEST PAIN, ABD PAIN, NAUSEA, HOT Time Seen by Provider: 05/11/25 11:38 Arrival date/time: 05/11/25 09:57 CC: Chest pain left anterior constant worse with palpation worse with deep breath cough or sneeze. Also complaining of subjective fever HPI onset last night. Denies shortness of breath but pain with deep inhalation. Denies cough nausea vomiting or diarrhea. RME / HPI RME / HPI narrative: 05/11/25 09:57 50-year-old female with a history of hyperlipidemia, CHF, hypertension, presents to the emergency room with a chief complaint of left-sided sternal 10 out of 10 chest pain that radiates up her left neck. The patient is also having shortness of breath. I have greeted and performed a focused initial assessment of this patient. A comprehensive ED assessment and evaluation of the patient, analysis of all test results, and completion of the medical decision making process will be conducted by additional ED providers. Related Data Home Medications ?Medication ?Instructions ?Recorded ?Confirmed atorvastatin 40 mg tablet 40 mg PO QDAY 04/27/2205/24 famotidine 20 mg tablet 20 mg PO BID 04/27/22 furosemide 20 mg tablet 20 mg PO BID 04/27/22 lisinopril 20 mg tablet 20 mg PO QDAY 04/27/2205/24 potassium chloride 8 mEq 8 meq PO BID 04/27/22 capsule,extended release Previous Rx's ?Medication ?Instructions ?Recorded ciprofloxacin HCl 500 mg tablet 500 mg PO BID #20 tabs 02/21/25 (Cipro) metronidazole 500 mg tablet 500 mg PO TID #21 tabs 08/06 ibuprofen 600 mg tablet 600 mg PO Q6H #30 tabs 04/09 ondansetron 4 mg disintegrating 4 mg PO Q8H #10 tabs 0 05/11/25 tablet Allergies Allergy/AdvReac Type Severity Reaction Status Date / Time aspirin Allergy Severe UNKNOWN Verified 05/11/25 10:00 codeine Allergy Severe HIVES Verified 05/11/25 10:00 Penicillins Allergy Severe UNKNOWN Verified 05/11/25 10:00 Review of Systems Review of Systems Narrative Review of Systems: GEN: + fever, no chills, no weight loss EYES: No discharge, no visual changes, no pain HEENT: No ear pain, no congestion, no sore throat PULM: No shortness of breath, no cough, no congestion CV: + chest pain, no dyspnea on exertion, no palpitations GI: No nausea, no vomiting, no diarrhea, no pain, no constipation : No frequency, no urgency, no dysuria MUSC/SKEL: No joint pain, no back pain SKIN: No rash PSYCH: No hallucinations, no depression HEME/LYMPH: No easy bleeding or bruising tendencies NEURO: No weakness, no headache Past Medical History Past Medical History NEUROLOGIC: Positive Neurological Disorders and Seizures CARDIAC: Positive Cardiac Disorders, Congestive Heart Failure and Hypertension RESPIRATORY: Positive Asthma; Negative Chronic Obstructive Pulmonary Disease (COPD) GASTROINTESTINAL: Positive Gastrointestinal Disorders and Gall Bladder Disease; Negative Hepatitis GENITOURINARY: Negative Genitourinary Disorders or Renal Disease REPRODUCTIVE: Positive Previous Pregnancies; Negative Pelvic Inflammatory Disease MUSCULOSKELETAL: Negative Musculoskeletal Disorders ENDOCRINE: Negative Endocrine Disorders, Diabetes Mellitus Type 1 or Diabetes Mellitus Type 2 HEMATOLOGIC: Negative Blood Disorders or Sickle Cell Disease PSYCHO/SOCIAL: Positive Recreational Drug Use, Depression and Anxiety OTHER HISTORY: Negative Autoimmune Disease, Falls, Human Immunodeficiency Virus (HIV), Chicken Pox, Measles, Mumps, Rubella (Guyanese Measles), Pertussis or Clostridium Difficile Family History FAMILY HISTORY: Positive Family Cardiac Disorders Surgical History SURGICAL: Positive Abdominal Surgery Social History SMOKING STATUS: Current every day smoker SECOND HAND EXPOSURE: No ED Exam Narrative Physical exam: [General: Obese not in in moderate discomfort but not in any acute distress Head normocephalic HEENT: Within acceptable limits Neck is supple nontender Chest equal chest rise tenderness to palpation of the left costal sternal border. No right sided tenderness with palpation. Respiratory: Clear to auscultation no wheezes crackles or rubs CV: Rate rhythm is regular no murmurs rubs or clicks Abdomen is distended secondary to body habitus soft nontender no masses positive bowel sounds all 4 quadrants Back: No CVA tenderness no spinous process tenderness from cervical spine thoracic and lumbar spine Skin: Intact no petechiae rash induration ulceration or crepitus Extremities: Moving all extremity against resistance cap refill less than 2 seconds neurosensory intact Neuro: Awake alert oriented x3 Glascow coma 15 no focal deficits] Course Quality Measures none Orders Category Date Time Status Bedside COVID-19 Antigen Test NOW Care 05/11/25 10:15 Active Bedside COVID-19 Antigen Test NOW Care 05/11/25 13:46 Active Bedside Influenza A&B Antigen Test NOW Care 05/11/25 10:15 Active EKG (ED ONLY) *Do not use* NOW Care 05/11/25 10:02 Completed EKG (ED Only) Stat Exams 05/11/25 10:02 Draft XR chest 2V Stat Exams 05/11/25 10:15 Completed B-Type Natriuretic Peptide Stat Lab 05/11/25 10:40 Completed CBC Stat Lab 05/11/25 10:40 Completed Comprehensive Metabolic Panel Stat Lab 05/11/25 10:40 Completed Drug Screen,Urine Stat Lab 05/11/25 12:00 Completed Influenza A & B Rapid Panel Stat Lab 05/11/25 13:55 Completed LDH (Lactate Dehydrogenase) Stat Lab 05/11/25 10:40 Completed Magnesium Stat Lab 05/11/25 10:40 Completed Partial Thromboplastin Time Stat Lab 05/11/25 10:40 Completed Prothrombin Time with INR Stat Lab 05/11/25 10:40 Completed Troponin I Stat Lab 05/11/25 10:40 Completed Urinalysis, C/S if Indicated Stat Lab 05/11/25 12:00 Completed Acetaminophen Tab [Tylenol Tab] Med 05/11/25 10:15 Discontinued 650 mg PO X1 ONE Ketorolac Inj [Toradol Inj] Med 05/11/25 13:46 Discontinued 30 mg IM X1 ONE Vital Signs Vital signs: Vital Signs Temperature 99.3 F 05/11/25 10:13 Pulse Rate 104 H 05/11/25 10:13 Respiratory Rate 18 05/11/25 10:13 Blood Pressure 114/66 05/11/25 10:13 Pulse Oximetry (%) 99 05/11/25 10:13 Oxygen Delivery Method Room Air 05/11/25 10:13 Discharge Plan Plan Patient Disposition: HOME (Self Care) Patient condition on transfer: Stable Prescriptions/Referrals Prescriptions/Med Rec: New ondansetron 4 mg tablet,disintegrating 4 mg PO Q8H Qty: 10 0RF No Action atorvastatin 40 mg tablet 40 mg PO QDAY Patient Comments: TAKE ONE TABLET BY MOUTH EVERY EVENING potassium chloride 8 mEq capsule, extended release 8 meq PO BID Patient Comments: TAKE ONE CAPSULE BY MOUTH TWICE DAILY with furosemide lisinopril 20 mg tablet 20 mg PO QDAY Patient Comments: TAKE ONE TABLET BY MOUTH EVERY DAY famotidine 20 mg tablet 20 mg PO BID Patient Comments: TAKE ONE TABLET BY MOUTH TWICE DAILY furosemide 20 mg tablet 20 mg PO BID Patient Comments: TAKE ONE TABLET BY MOUTH TWICE DAILY ciprofloxacin HCl [Cipro] 500 mg tablet 500 mg PO BID Qty: 20 0RF metronidazole 500 mg tablet 500 mg PO TID Qty: 21 0RF ibuprofen 600 mg tablet 600 mg PO Q6H Qty: 30 0RF Referrals: Jason Cavanaugh MD [Physician, Family Practice] - In 1 week No Primary/Family,Physician [Primary Care Provider] - In 1 week Problem List Clinical Impression: COVID, Chest pain, Nausea, Methamphetamine abuse Patient/Caregiver Discharge Instructions Education Materials: COVID-19 Make Face Mask, 2019-nCoV, Understanding Methamphetamine ..., ED Chest Pain, Noncardiac Print Language: Uruguayan Stand Alone Forms: [employer] 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 Supervising Physician PA/SILVERING DEPARTMENT SUPERVISOR Supervising Physician: Maury Benítez ENP [facility] Clinical Information Provided by: patient Medical Records reviewed [facility] Meds/Rx considered, not ordered None Labs/Rad/Tests considered, not ordered None Chronic Illness/Social Conditions which may negatively complicate care or outcome(s)-explain: ETOH/drugs/substance abuse EKG Interpretation EKG #1: EKG Interpretation: EKG performed at 10:15 AM shows ventricular rate of 96 NM interval 128 QRS of 95 QTc of 433 this is sinus rhythm nonspecific ST segment changes. Labs Labs: none Lab(s) Interpretation(s): CBC shows no acute leukocytosis H&H of 10.1 and 33.2 respectively no thrombocytopenia Coags within excepted limits CMP shows no significant electrolyte imbalances renal impairment transaminitis or T. bili elevation Troponin is undetectable BNP 227 Urine is turbid and contaminated. UDS positive for methamphetamines Medication Administration(s) Medication Administration History Discontinued Medications Acetaminophen (Acetaminophen 325 Mg Tablet) 650 mg PO X1 ONE Stop: 05/11/25 10:16 Last Admin: 05/11/25 10:44 Dose: 650 mg Documented By: Ketorolac Tromethamine (Ketorolac Inj 60 Mg/2 Ml Vial) 30 mg IM X1 ONE Stop: 05/11/25 13:47 Last Admin: 05/11/25 14:11 Dose: 30 mg Documented By:
[2025-05-11 13:56] VITALS: BP 100/66; PULSE 88; RESP 20; TEMP 36.9; O2SAT 96
[2025-05-11] MEDS: KETOROLAC INJ 60 MG/2 ML VIAL 30 MG IM (14:11)
[2025-05-11 14:20] LABS: Influenza A Ag Negative; Influenza B Ag Negative
== END 2025-05-11 15:00 | disposition home or self-care (01) ==
PROVIDERS: Nurse Practitioner Family; Registered Nurse General Practice; Emergency Provider Family Medicine
DX: U07.1 COVID-19 (principal); F15.10 Other stimulant abuse, uncomplicated; R94.31 Abnormal electrocardiogram [ECG] [EKG]
CPT/HCPCS: 36415; 71046; 80053; 80307; 81001; 83615; 83735; 83880; 84484; 85025; 85610; 85730; 87502; 87811; 93005; 96372; 99284; J1885; A9270

== ENCOUNTER 2025-06-15 20:13 | Emergency (ER) | payer MEDICAID, SELFPAY ==
[2025-06-15 20:14] VITALS: BMI 32.1
--- NOTE | 2025-06-15 20:40 | PD.EDEXREM ---
ED Extremity Problem RME/HPI General Chief complaint: Extremity Problem,Nontraumatic Stated complaint: LEFT LEG PAIN Time Seen by Provider: 06/15/25 20:40 Arrival date/time: 06/15/25 20:13 RME / HPI RME / HPI Narrative: See MDM for Dr. Nunez's HPI Documentation. Related Data Home Medications ?Medication ?Instructions ?Recorded ?Confirmed atorvastatin 40 mg tablet 40 mg PO QDAY 04/27/22 05/24/22 famotidine 20 mg tablet 20 mg PO BID 04/27/22 05/24/22 furosemide 20 mg tablet 20 mg PO BID 04/27/22 05/24/22 lisinopril 20 mg tablet 20 mg PO QDAY 04/27/22 05/24/22 potassium chloride 8 mEq 8 meq PO BID 04/27/22 05/24/22 capsule,extended release Previous Rx's ?Medication ?Instructions ?Recorded ciprofloxacin HCl 500 mg tablet 500 mg PO BID #20 tabs 02/21/25 (Cipro) metronidazole 500 mg tablet 500 mg PO TID #21 tabs 02/21/25 ibuprofen 600 mg tablet 600 mg PO Q6H #30 tabs 04/09/25 ondansetron 4 mg disintegrating 4 mg PO Q8H #10 tabs 05/11/25 tablet Allergies Allergy/AdvReac Type Severity Reaction Status Date / Time aspirin Allergy Severe UNKNOWN Verified 05/11/25 10:00 codeine Allergy Severe HIVES Verified 05/11/25 10:00 Penicillins Allergy Severe UNKNOWN Verified 05/11/25 10:00 Review of Systems Review of Systems Systems Reviewed: All systems reviewed, normal except as documented Past Medical History Past Medical History NEUROLOGIC: Positive Neurological Disorders and Seizures CARDIAC: Positive Cardiac Disorders, Congestive Heart Failure and Hypertension RESPIRATORY: Positive Asthma GASTROINTESTINAL: Positive Gastrointestinal Disorders and Gall Bladder Disease REPRODUCTIVE: Positive Previous Pregnancies PSYCHO/SOCIAL: Positive Recreational Drug Use, Depression and Anxiety Family History FAMILY HISTORY: Positive Family Cardiac Disorders Surgical History SURGICAL: Positive Abdominal Surgery ED Exam Narrative Physical exam: See MDM for Dr. Nunez's Physical Exam Documentation. Course Quality Measures none Orders Category Date Time Status MRI Screening NOW Care 06/16/25 00:15 Active Saline [Insert IV] NOW Care 06/16/25 02:[address] abdomen pelvis wo con Stat Exams 06/15/25 23:[address] lumbar spine wo con Stat Exams 06/15/25 20:44 Completed MR lumbar spine wo con Stat Exams 06/16/25 Ordered US venous doppler LE LT Stat Exams 06/15/25 20:44 Completed Alcohol, Blood Medical Stat Lab 06/15/25 21:29 Completed Bilirubin,Direct Stat Lab 06/15/25 21:29 Completed CBC Stat Lab 06/15/25 21:29 Completed CK [Creatine Kinase] Stat Lab 06/15/25 21:29 Completed CMP [Comprehensive Metabolic Panel] Stat Lab 06/15/25 21:29 Completed D-Dimer Stat Lab 06/15/25 21:29 Completed Drug Screen,Urine Stat Lab 06/15/25 22:49 Completed HCG,Qualitative Serum Stat Lab 06/15/25 21:29 Completed Lipase Stat Lab 06/15/25 21:29 Completed Magnesium Stat Lab 06/15/25 21:29 Completed TSH [Thyroid Stimulating Hormone] Stat Lab 06/15/25 21:29 Completed UA, C/S IF [Urinalysis, C/S if Indicated] Stat Lab 06/15/25 22:49 Completed Urine Culture Stat Lab 06/16/25 03:19 Ordered Ketorolac Inj [Toradol Inj] Med 06/16/25 02:10 Discontinued 30 mg IVP X1 ONE Ondansetron Inj [Zofran Inj] Med 06/16/25 02:10 Discontinued 4 mg IVP X1 ONE Sodium Chloride 0.9% 1000 ml [Ns] 1,000 ml Med 06/16/25 02:10 Discontinued IV 999 mls/hr Vital Signs Vital signs: Vital Signs Temperature 98.2 F 06/15/25 21:29 Pulse Rate 91 06/15/25 21:29 Respiratory Rate 20 06/15/25 21:29 Blood Pressure 122/80 06/15/25 21:29 Pulse Oximetry (%) 98 06/15/25 21:29 Oxygen Delivery Method Room Air 06/15/25 21:29 Extremity Problem MDM Narrative MDM Narrative:: This section includes all my notes and documentations, including HPI, PE, and ED course. Eliecer Nunez MD HPI: 50 y/o female with Hx of CHF, HTN, and Recreational Drug Use here with severe low back pain radiating into left leg since yesterday. And she can't move at the left ankle. No numbness or tingling. No loss of control of bladder or bowels. No saddle numbness. No other complaints. ROS: All negative except as documented in HPI. Physical Exam: General: Alert and oriented. Appears uncomfortable. Eyes: Conjunctivae and lids clear. ENT: No nasal congestion. Neck: Supple. Heart: RRR. Lungs: No respiratory distress. Good air movement. No rhonchi, wheezing, rales. Abdomen: Soft and nontender. Normal bowel sounds. No distension. No rebound or guarding. Back: No CVA tenderness. Equivocal lumbar spinal tenderness. Legs: No clubbing, cyanosis, edema. Severe left leg tenderness noted, difficult to localize. Skin: Warm and dry. Neuro: Alert and oriented X 3. Equivocal dorsiflexion paralysis. I reviewed all diagnostic test results: My review of the Venous Doppler US report is: No left leg DVT. My review of the lumbar spine and abdominal CT reports is severe lumbar spinal stenosis. Blood tests and urine tests remarkable for CK 324, positive UDS for methamphetamine, and UTI. At this point, diagnoses include: Lumbar spinal stenosis UTI Rhabdomyolysis Treatment here included: IVF Zofran 4 mg IV Toradol 30 mg IV Rocephin 1 g IV Lumbar spine MRI ordered. At 6 AM on 06/16/25, the care of the patient was transferred to Dr. MYLES. Eliecer Nunez MD Patient data External records reviewed:: [facility] previous records (Reviewed prior ED records from 05/11/25. Patient was seen for COVID.) Clinical information provided by:: patient Social determinants that could affect healthcare access:: substance use Patient has the following chronic illnesses:: Seizures, Congestive Heart Failure, Hypertension, Asthma, Gall Bladder Disease, Recreational Drug Use, Depression and Anxiety How is presenting disease/condition affected by chronic disease/condition?: exacerbated by Evaluation data The following diagnostics were reviewed and interpreted by me:: lab results and radiology exam(s) Lab and/or radiology exams considered but not ordered:: None Interpretation Summary: I reviewed all diagnostic test results: My review of the Venous Doppler US report is: No left leg DVT. My review of the lumbar spine and abdominal CT reports is severe lumbar spinal stenosis. Blood tests and urine tests remarkable for CK 324, positive UDS for methamphetamine, and UTI. Lumbar spine MRI ordered. Medications / Prescriptions Medications or Prescriptions considered but not ordered:: None Medication administrations:: Medication Administration History Discontinued Medications Sodium Chloride (Ns) 1,000 mls @ 999 mls/hr IV .Q1H1M ONE Stop: 06/16/25 03:10 Last Admin: 06/16/25 02:24 Dose: 999 mls/hr Documented By: DT Ketorolac Tromethamine (Ketorolac Inj 30 Mg/Ml Vial) 30 mg IVP X1 ONE Stop: 06/16/25 02:11 Last Admin: 06/16/25 02:25 Dose: 30 mg Documented By: DT Ondansetron HCl (Ondansetron Inj 2 Mg/Ml Inj 2 Ml) 4 mg IVP X1 ONE; Protocol Stop: 06/16/25 02:11 Last Admin: 06/16/25 02:25 Dose: 4 mg Documented By: MARY Treatment here included: IVF Zofran 4 mg IV Toradol 30 mg IV Rocephin 1 g IV Consultations Consultation(s) initiated? (list below): No Diagnosis Extremity Problem Differential Diagnosis: herpes zoster, gout, cellulitis, superficial thrombophlebitis, lower extremity edema and deep vein thrombosis of lower extremity Most likely diagnosis given after review of the tests above:: At this point, diagnoses include: Lumbar spinal stenosis UTI Rhabdomyolysis Admission Indicated Admission indicated?: not indicated Explain why admission is indicated or not indicated:: Complete diagnostics pending. Admission Request Was there a request for admission?: No Disposition Plan Disposition Plan: other (specify) (At 6 AM on 06/16/25, the care of the patient was transferred to Dr. MYLES.) Discharge Plan Prescriptions/Referrals Prescriptions/Med Rec: No Action atorvastatin 40 mg tablet 40 mg PO QDAY Patient Comments: TAKE ONE TABLET BY MOUTH EVERY EVENING potassium chloride 8 mEq capsule, extended release 8 meq PO BID Patient Comments: TAKE ONE CAPSULE BY MOUTH TWICE DAILY with furosemide lisinopril 20 mg tablet 20 mg PO QDAY Patient Comments: TAKE ONE TABLET BY MOUTH EVERY DAY famotidine 20 mg tablet 20 mg PO BID Patient Comments: TAKE ONE TABLET BY MOUTH TWICE DAILY furosemide 20 mg tablet 20 mg PO BID Patient Comments: TAKE ONE TABLET BY MOUTH TWICE DAILY ciprofloxacin HCl [Cipro] 500 mg tablet 500 mg PO BID Qty: 20 0RF metronidazole 500 mg tablet 500 mg PO TID Qty: 21 0RF ibuprofen 600 mg tablet 600 mg PO Q6H Qty: 30 0RF ondansetron 4 mg tablet,disintegrating 4 mg PO Q8H Qty: 10 0RF Referrals: Temporary Provider,ED [Physician, Emergency Medicine] - In 1 week Problem List Clinical Impression: Lumbar spinal stenosis, UTI (urinary tract infection), Rhabdomyolysis Patient/Caregiver Discharge Instructions Print Language: Lithuanian
--- NOTE | 2025-06-15 20:44 | XR_ITS ---
Examination: Duplex scan of the lower extremity, unilateral left complete Date and time of exam: June 14, 2025, 2057 hours INDICATIONS: Left calf pain and swelling today Technique: Duplex scan of the extremity veins using B-mode/grayscale imaging and Doppler spectral analysis and color flow Attention is directed to internal echogenicity, compression and augmentation involving these veins, color flow assessment, spectral analysis Findings: Major deep venous structures in the extremity demonstrate normal course and caliber. There is no evidence of deep vein thrombosis. Normal color flow and spectral analysis Impression: Negative for DVT..
--- NOTE | 2025-06-15 20:44 | XR_ITS ---
Examination: CT lumbar spine, without contrast. 2-D sagittal reconstructions. 2-D coronal reconstructions. 3-D reconstructions. Date and time of exam: June 15, 2025, 11:36 p.m. INDICATION: Low back pain radiating down the legs today CTDI: vol (mGy): 32.9 DLP: (mGycm): 884 Technique: Multiple 1.25 mm axial sections of the lumbar spine without intravenous contrast have been obtained. 2-D sagittal and coronal reconstructions have been obtained. 3-D reconstructions have been obtained. Low dose protocols were performed. One or more of the following dose reduction techniques were used; automated exposure control, adjustment of the mA and/or KV according to patient size, use of iterative reconstruction technique. Findings: Grade 1 anterolisthesis L4 on L5 No lumbar fracture Lumbar pedicles, laminae, transverse and posterior spinous processes intact L5-S1 no disc protrusion L4-L5 severe overall spinal stenosis, axial image 85 secondary to grade 1 anterolisthesis L4 on L5, 4 mm central lumbar disc bulge, facet arthropathy and thickening of ligamenta flava circumferentially narrowing the thecal sac L3-L4 no disc protrusion L2-3 no disc protrusion L1-L2 no disc protrusion IMPRESSION: L4-L5 severe overall spinal stenosis, axial image 85, grade 1 anterolisthesis L4 on L5, 4 mm central lumbar disc bulge, facet arthropathy and thickening of ligamentum flavum circumferentially narrowing the thecal sac, recommend elective MRI lumbar spine without contrast follow-up
[2025-06-15 21:29] VITALS: BP 122/80; PULSE 91; RESP 20; TEMP 36.8; O2SAT 98
[2025-06-15 22:00] LABS: Basophils # (Auto) 0.0 Thou/mm3 (0.0-0.2); Basophils % (Auto) 0 % (0-2.5); Eosinophils # (Auto) 0.2 Thou/mm3 (0.0-0.5); Eosinophils % (Auto) 4 % (0-10); Hematocrit 32.4 % (36.0-46.0); Hemoglobin 9.9 g/dL (12.0-16.0); Immature Granulocytes Auto 0.02 Thou/mm3 (0.00-0.00); Lymphocytes # (Auto) 2.2 Thou/mm3 (1.0-4.8); Lymphocytes % (Auto) 32 % (10-50); Mean Corpuscular HGB Conc 30.6 g/dl (31.0-37.0); Mean Corpuscular Hemoglobin 23.9 pg (25.0-35.0); Mean Corpuscular Volume 78 fL (80-100); Monocytes # (Auto) 0.6 Thou/mm3 (0.0-0.8); Monocytes % (Auto) 8 % (0-12); Neutrophils # (Auto) 3.7 Thou/mm3 (1.8-7.7); Neutrophils % (Auto) 55 % (37-80); Nucleated Red Blood Cell # 0.00 Thou/mm3 (0.00-0.00); Nucleated Red Blood Cell % 0 /100 WBC (0); Platelet Count 484 Thou/mm3 (140-440); RDW Standard Deviation 49.3 fL (36.4-46.3); Red Blood Count 4.14 Miln/mm3 (4.00-5.20); White Blood Count 6.8 Thou/mm3 (3.6-11.0)
[2025-06-15 22:14] LABS: D-Dimer 252 ng/mL (<600)
[2025-06-15 22:26] LABS: Alanine Aminotransferase 16 U/L (10-49); Albumin, Serum 4.7 gm/dL (3.5-5.0); Albumin/Globulin Ratio 2.1 (1.2-2.2); Alcohol, Blood Medical < 3.0 mg/dL (0-10.0); Alkaline Phosphatase 85 U/L (46-116); Anion Gap 9 (7-16); Aspartate Amino Transferase 26 U/L (0-34); BUN/Creatinine Ratio 17 Ratio (12-20); Bilirubin,Direct 0.1 mg/dL (0.0-0.3); Bilirubin,Total 0.4 mg/dL (0.3-1.2); Blood Urea Nitrogen 15 mg/dL (9-23); Calcium 9.0 mg/dL (8.3-10.6); Calcium (Corrected) 9.0 mg/dL (8.5-10.1); Carbon Dioxide 23.7 mMol/L (20.0-31.0); Chloride 110 mMol/L (98-107); Creatine Kinase 324 U/L (34-171); Creatinine (Component) 0.9 mg/dL (0.6-1.3); Estimated Creatinine Clearance 74.8 mL/min (>60); Globulin 2.2 gm/dL (2.3-3.5); Glucose 103 mg/dL (74-106); Lipase 23 U/L (12-53); Magnesium 1.9 mg/dL (1.6-2.6); Osmolality,Calculated 285 (275-295); Potassium 3.7 mMol/L (3.4-5.1); Sodium 143 mMol/L (136-145); Thyroid Stimulating Hormone 0.58 uIU/mL (0.55-4.78); Total Protein 6.9 gm/dL (5.7-8.2); eGFR > 60 See Note
[2025-06-15 22:41] LABS: HCG,Qualitative Serum Negative
[2025-06-15 23:09] LABS: Collection Type, Urine Clean Catch
[2025-06-15 23:17] LABS: Bacteria,Urine 4+; Bilirubin,Urine Negative (Negative); Blood,Urine Negative (Negative); Clarity,Urine Turbid (Clear/Hazy); Color,Urine Yellow (Lt Yel-Yel); Culture Indicated,Urine Contaminated; Glucose, Urine Negative (Negative); Ketones,Urine Negative (Negative); Leukocyte Esterase,Urine Positive (Negative); Nitrite,Urine Positive (Negative); PH,Urine 6.0 (5.0-7.0); Protein,Urine Trace (Neg - Trace); RBC,Urine 5 /hpf (0-3); Specific Gravity,Urine 1.031 (1.001-1.035); Squamous Epithelial Cell,Urine 17 /hpf (0-5); Urobilinogen,Urine Negative mg/dL (0.0-1.0); WBC,Urine 29 /hpf (0-5)
[2025-06-15 23:22] LABS: Amphetamine/Methamp Scrn,U Positive (Negative); Barbiturate Screen,Urine Negative (Negative); Benzodiazepines Screen,Urine Negative (Negative); Benzoylecgonine Screen, Ur Negative (Negative); Fentanyl Screen,Urine Negative (Negative); Opiate Screen,Urine Negative (Negative); THC Screen,Urine Negative (Negative)
--- NOTE | 2025-06-15 23:37 | XR_ITS ---
Examination: CT abdomen and pelvis without contrast. Coronal 3-D reconstructions. Sagittal 2-D reconstructions. Date and time of exam: June 15, 2025, 11:44 p.m., comparison February 21, 2025 INDICATION: Left flank pain today CTDI: vol (mGy): 9.70 DLP: (mGycm): 506 Technique: Axial images of the abdomen have been obtained, 3 mm slice thickness Intravenous contrast material has not been administered. Low dose protocols were performed. One or more of the following dose reduction techniques were used; automated exposure control, adjustment of the mA and/or KV according to patient size, use of iterative reconstruction technique. Findings: No focal liver or splenic lesions GALLBLADDER NO PANCREATIC OR ADRENAL MASS NO RENAL OR URETERAL CALCULI, NO HYDRONEPHROSIS AORTA NORMAL SIZE NORMAL APPENDIX NO BOWEL OBSTRUCTION NO BLADDER MASS ANTEVERTED UTERUS GRADE 1 ANTEROLISTHESIS L4 ON L5 WITH MODERATE OVERALL SPINAL STENOSIS L4-L5 MODERATE NARROWING HIP JOINT IMPRESSION: No renal or ureteral calculi, no hydronephrosis Normal appendix No bowel obstruction diverticulitis or free air Significant spinal stenosis L4-L5
--- NOTE | 2025-06-16 | XR_ITS ---
Examination: MRI lumbar spine without contrast Date and time of exam: 06/16/2025, 7:04 a.m. INDICATION: Left foot drop COMPARISON: CT lumbar spine 06/15/2025 Technique: Multiple MRI axial and sagittal sections lumbar spine. Sagittal T2-weighted images, TR 3500, TE 118 T1 weighted transverse sections, TR 688 T8.5, T2-weighted sagittal sections T1 weighted sagittal sections TR 621, TE 30 T2 axial sections, TR 4, 190, TE 84. Findings: Redemonstration of 5 nonrib-bearing lumbar vertebral bodies. No vertebral compression fractures. No aggressive bone lesions. T11 vertebral body hemangioma is present on the left side. Distal spinal cord demonstrates normal morphology and signal intensity without evidence for impingement. Multilevel spondylosis is present along with degenerative disc related changes At L5-S1, there is right-sided facet arthropathy, heterogeneous and disc signal and there is a small left posterolateral disc osteophyte complex encroaching the lower ventral portion of the left neural foramen which is slightly narrowed right neural foramen is also slightly narrowed by facet hypertrophy. No disc extrusion or significant acquired central canal stenosis. Note is made of mild fibrovascular marrow edema along the right peripheral aspect of the L5 inferior endplate with adjacent horizontal T2 hyperintense focus within the underlying disc which could represent a fissure. At L4-L5, there is redemonstration of grade 1 anterolisthesis of L4 over L5 with associated severe bilateral hypertrophic facet arthropathy and some ligamentum flavum thickening/buckling contributing to moderate central canal stenosis in combination with congenitally short pedicles. There is mild left greater the right lateral recess stenosis and neuroforaminal stenosis as well. Disc desiccation and mild disc space narrowing identified. At L3-L4, there is a small broad posterior disc protrusion which mildly indents the thecal sac. Bilateral facet hypertrophy and ligamentum flavum thickening/buckling are present, contributing to moderate central canal stenosis in combination with congenitally short pedicles. Asymmetric left posterolateral disc protrusion encroaches the left neural foramen and appears to contact the extraforaminal course of the left L3 nerve (sagittal T2 image 12; axial T2 image 37). Moderate bilateral neural foraminal stenoses. At L2-L3, there is a very mild broad disc protrusion indenting the thecal sac. Left greater than right facet hypertrophy with ligamentum flavum thickening/buckling are present, contributing to moderate central canal stenosis in combination with short pedicles. Disc protrusion mildly encroaches the bilateral neural foramina which are mildly narrowed. At L1-L2, disc stature and signal are well-maintained. There is no significant disc protrusion or extrusion. Mild bilateral facet hypertrophy and ligamentum flavum thickening are present with very mild central canal narrowing identified. No neural foraminal stenosis. At T10-T11, mild degenerative disc and endplate changes are present, most pronounced anteriorly, there is also a very small posterior disc protrusion mildly indenting the thecal sac. IMPRESSION: Multilevel spondylosis and degenerative disc related changes with multifactorial central canal and neural foraminal stenoses as detailed above. At L3-L4, left posterolateral disc protrusion appears to contact the extraforaminal course of the left L3 nerve. Modic type I signal changes along the right peripheral aspect of the L5 inferior endplate with adjacent annular fissure which are potential pain generators.
[2025-06-16 02:10] VITALS: BP 129/81; PULSE 79; RESP 18; TEMP 36.6; O2SAT 96
[2025-06-16] MEDS: SODIUM CHLORIDE 0.9% 1000 ML 1,000 ML 999 ML IV (02:24)
[2025-06-16] MEDS: ONDANSETRON INJ 2 MG/ML INJ 2 ML 4 MG IVP ×2 (02:25→10:13)
[2025-06-16] MEDS: KETOROLAC INJ 30 MG/ML VIAL IVP (02:25)
[2025-06-16] MEDS: cefTRIAXone/D5w 1gm IV premix 1 GM/50 ML BAG IV (04:20)
[2025-06-16] MEDS: RINGERS LACTATED 1000 ML 1,000 ML 500 ML IV (04:54)
[2025-06-16 06:20] VITALS: BP 125/87; PULSE 73; RESP 17; TEMP 36.7; O2SAT 97
--- NOTE | 2025-06-16 07:00 | PC.NURSE ---
Pt taken to MRI via wheelchair
[2025-06-16 07:51] VITALS: BP 113/73; PULSE 78; RESP 15; TEMP 36.6; O2SAT 99
--- NOTE | 2025-06-16 09:32 | PD.EDADDENDU ---
Emergency Room Addendum <Claritza Collins MD - Last Filed: 06/16/25 10:15> Addendum Narrative: Patient has allergy to aspirin which she states causes rash. She confirmed that she is able to take other NSAID medications without issue. <Olya Hoover - Last Filed: 06/16/25 10:57> Addendum Narrative: 0600: Care assumed from Dr. Nunez, the previous shift emergency physician. Past medical, surgical, social and family history reviewed. Vitals and home medications reviewed. I will assume the care of the patient at this time, pending MRI lumbar spine and final disposition. Please refer to the emergency department record for history and examination from initial visit.?The following addendum documentation note is intended to reflect any pending information, findings, or radiology results not included in the patient?s initial chart. Patient has allergy to aspirin which she states causes rash. She confirmed that she is able to take other NSAID medications without issue. We reviewed all the results, analysis, and treatment plans. Patient is amenable to discharge. Strict return precautions were outlined. RADIOLOGY Ordering Physician: Eliecer Nunez MD Date of Service: 06/16/25 Procedure(s): MR lumbar spine wo con Accession Number(s): [id number] cc: Eliecer Nunez MD; NO PRIMARY/FAMILY,PHYSICIAN; Casa Hernandez Examination: MRI lumbar spine without contrast Date and time of exam: 06/16/2025, 7:04 a.m. INDICATION: Left foot drop COMPARISON: CT lumbar spine 06/15/2025 Technique: Multiple MRI axial and sagittal sections lumbar spine. Sagittal T2-weighted images, TR 3500, TE 118 T1 weighted transverse sections, TR 688 T8.5, T2-weighted sagittal sections T1 weighted sagittal sections TR 621, TE 30 T2 axial sections, TR 4, 190, TE 84. Findings: Redemonstration of 5 nonrib-bearing lumbar vertebral bodies. No vertebral compression fractures. No aggressive bone lesions. T11 vertebral body hemangioma is present on the left side. Distal spinal cord demonstrates normal morphology and signal intensity without evidence for impingement. Multilevel spondylosis is present along with degenerative disc related changes At L5-S1, there is right-sided facet arthropathy, heterogeneous and disc signal and there is a small left posterolateral disc osteophyte complex encroaching the lower ventral portion of the left neural foramen which is slightly narrowed right neural foramen is also slightly narrowed by facet hypertrophy. No disc extrusion or significant acquired central canal stenosis. Note is made of mild fibrovascular marrow edema along the right peripheral aspect of the L5 inferior endplate with adjacent horizontal T2 hyperintense focus within the underlying disc which could represent a fissure. At L4-L5, there is redemonstration of grade 1 anterolisthesis of L4 over L5 with associated severe bilateral hypertrophic facet arthropathy and some ligamentum flavum thickening/buckling contributing to moderate central canal stenosis in combination with congenitally short pedicles. There is mild left greater the right lateral recess stenosis and neuroforaminal stenosis as well. Disc desiccation and mild disc space narrowing identified. At L3-L4, there is a small broad posterior disc protrusion which mildly indents the thecal sac. Bilateral facet hypertrophy and ligamentum flavum thickening/buckling are present, contributing to moderate central canal stenosis in combination with congenitally short pedicles. Asymmetric left posterolateral disc protrusion encroaches the left neural foramen and appears to contact the extraforaminal course of the left L3 nerve (sagittal T2 image 12; axial T2 image 37). Moderate bilateral neural foraminal stenoses. At L2-L3, there is a very mild broad disc protrusion indenting the thecal sac. Left greater than right facet hypertrophy with ligamentum flavum thickening/buckling are present, contributing to moderate central canal stenosis in combination with short pedicles. Disc protrusion mildly encroaches the bilateral neural foramina which are mildly narrowed. At L1-L2, disc stature and signal are well-maintained. There is no significant disc protrusion or extrusion. Mild bilateral facet hypertrophy and ligamentum flavum thickening are present with very mild central canal narrowing identified. No neural foraminal stenosis. At T10-T11, mild degenerative disc and endplate changes are present, most pronounced anteriorly, there is also a very small posterior disc protrusion mildly indenting the thecal sac. IMPRESSION: Multilevel spondylosis and degenerative disc related changes with multifactorial central canal and neural foraminal stenoses as detailed above. At L3-L4, left posterolateral disc protrusion appears to contact the extraforaminal course of the left L3 nerve. Modic type I signal changes along the right peripheral aspect of the L5 inferior endplate with adjacent annular fissure which are potential pain generators. Dictated By: Casa Hernandez DO Signed By: <Electronically signed by Casa Hernandez DO in [place]>06/16/25 0853
[2025-06-16 10:10] VITALS: BP 123/86; PULSE 83; RESP 18; TEMP 36.6; O2SAT 100
[2025-06-16] MEDS: KETOROLAC INJ 30 MG/ML VIAL 15 MG IVP (10:15)
[2025-06-16 11:21] VITALS: BP 107/65; PULSE 77; RESP 18; TEMP 36.6; O2SAT 98
--- NOTE | 2025-06-16 11:30 | PC.NURSE ---
PT OFFERED RIDE [facility]; PER PT, I'M BANNED FROM [facility] FOR THREATENING A STAFF BEFORE AND I DON'T LIKE THE [facility]. THE ADDRESS I WANT TO GO TO IS AT A HOUSE IN [facility].
--- NOTE | 2025-06-16 11:43 | PC.NURSE ---
SHIPFITTER APPRENTICE MADE AWARE PT NEEDING A RIDE HOME FOR ADDRESS [address].
--- NOTE | 2025-06-16 11:48 | PC.SS ---
This [employer]PER[employer] credit intern scheduled transportation to home for patient. [address] city [address]. Nurse Antoinette and patient aware of transportation arrangements.
--- NOTE | 2025-08-12 08:34 | PD.EDADDENDU ---
Emergency Room Addendum Addendum Narrative: Called and talked to patient about 06/20/25 urine C & S. She was treated and reports no urinary symptoms or fever or back pain or flank pain or abdominal pain. She currently lives in [place]. No further action necessary. Eliecer Nunez MD
== END 2025-06-16 12:05 | disposition home or self-care (01) ==
PROVIDERS: Emergency Provider Emergency Medicine
DX: M21.372 Foot drop, left foot (principal); I11.0 Hypertensive heart disease with heart failure; M47.816 Spondylosis without myelopathy or radiculopathy, lumbar region; M48.061 Spinal stenosis, lumbar region without neurogenic claudication; M51.26 Other intervertebral disc displacement, lumbar region; M62.82 Rhabdomyolysis; N39.0 Urinary tract infection, site not specified
CPT/HCPCS: 36415; 72131; 72148; 74176; 80053; 80307; 80320; 81001; 82248; 82550; 83690; 83735; 84443; 84703; 85025; 85379; 87077; 87086; 87186; 93971; 96361; 96365; 96375; 96376; 99284; J0696; J1200; J1885; J2405; J7030; J7120; G0480